=== PATIENT | male | born 1950 | race Hispanic/Latino ===

== ENCOUNTER 2016-11-06 17:53 | Outpatient (CLI) | payer MEDICARE ==
--- NOTE | 2016-11-06 19:41 | RAD ---
FOUR VIEWS RIGHT ELBOW: History: Right elbow pain for three months. No history of trauma. Date: 11-06-16 FINDINGS: The right elbow is unremarkable. No evidence of right elbow fracture, subluxation, or bony lesion se en. IMPRESSION: Normal four views right elbow. POS: [facility]
== END 2016-11-06 17:54 | disposition home or self-care (01) ==
LOC: MADRAD 17:53
PROVIDERS: ATTEND Nurse Practitioner Family
DX: M25.521 Pain in right elbow (principal)